=== PATIENT | male | born 1990 ===

== ENCOUNTER 2018-08-22 03:12 | Emergency (ER) | payer SELFPAY ==
[2018-08-22 03:16] VITALS: RESP 16
[2018-08-22 04:23] LABS: BASO % 0.3 % (0.0-2.0); EOS # 0.1 K/uL (0.0-0.7); EOS % 1.9 % (0.0-4.0); HEMOGLOBIN 15.7 g/dL (12.0-18.0); LYMPH % 25.6 % (20.0-40.0); MEAN CELL VOLUME 88.7 fL (80.0-94.0); MEAN CORPUSCULAR HEMOGLOBIN 30.3 pg (27.0-31.0); MEAN CORPUSCULAR HGB CONC 34.2 g/dL (33.0-37.0); MEAN PLATELET VOLUME 7.6 fL (7.2-11.7); MONO # 0.7 K/uL (0.0-0.8); MONO % 8.7 % (0.0-10.0); NEUT # 4.9 K/uL (1.8-7.0); NEUT % 63.5 % (50.0-75.0); RBC 5.18 Mil/uL (4.40-5.90); RED CELL DISTRIBUTION WIDTH 13.9 % (11.5-14.5); WHITE BLOOD COUNT 7.8 K/uL (4.8-10.8)
[2018-08-22 04:26] LABS: SQUAMOUS EPITHIAL < 1 /hpf (0-5); URINE BILIRUBIN NEGATIVE (NEGATIVE); URINE BLOOD NEGATIVE (NEGATIVE); URINE CLARITY Clear (Clear); URINE COLOR Yellow (YELLOW); URINE GLUCOSE (UA) NORMAL (Normal); URINE LEUKOCYTE ESTERASE NEG Leu/uL (Negative); URINE PROTEIN NEGATIVE (NEGATIVE)
[2018-08-22 04:35] LABS: ALB/GLOB RATIO 1.6 (1.0-2.1); ALBUMIN 4.4 g/dL (3.5-5.0); ALT/SGPT 74 U/L (21-72); AST/SGOT 52 U/L (17-59); BLOOD UREA NITROGEN 12 mg/dL (9-20); CALCIUM 9.1 mg/dl (8.6-10.4); GFR NON-AFRICAN AMERICAN > 60; LIPASE 831 U/L (23-300)
[2018-08-22] MEDS ORDERED: Iodixanol 320 MG/ML 100 ML BOTTLE IV ONE (04:52)
--- NOTE | 2018-08-22 05:48 | C.PDOC ---
History Of Present Illness 27 year old male presents to ED with complaint of pain to the epigastric area for the past 4 days. Patient also complains of associated intermittent nausea. He denies diarrhea, bloody stools, fever, or recent travel. Time Seen by Provider: 08/22/18 03:33 Chief Complaint (Nursing): Abdominal Pain History Per: Patient History/Exam Limitations: no limitations Onset/Duration Of Symptoms: Days (4) Current Symptoms Are (Timing): Still Present Location Of Pain/Discomfort: Epigastric Radiation Of Pain To:: None Quality Of Discomfort: "Pain" Associated Symptoms: Nausea. denies: Fever, Vomiting, Diarrhea, Urinary Symptoms Exacerbating Factors: None Alleviating Factors: None Past Medical History Reviewed: Historical Data, Nursing Documentation, Vital Signs Vital Signs: Last Vital Signs Temp 98.3 F 08/22/18 05:34 Pulse 57 L 08/22/18 05:34 Resp 16 08/22/18 05:34 BP 116/70 08/22/18 05:34 Pulse Ox 96 08/22/18 05:34 Primary Care Provider: FAMILY PROVIDER,NO - Medical History PMH: HTN (but no med) Surgical History: No Surg Hx Family History: States: Unknown Family Hx - Social History Hx Alcohol Use: Yes Hx Substance Use: No - Immunization History Hx Tetanus Toxoid Vaccination: No Hx Influenza Vaccination: No Hx Pneumococcal Vaccination: No Review Of Systems Constitutional: Negative for: Fever, Chills, Weakness Gastrointestinal: Positive for: Nausea, Abdominal Pain (epigastric). Negative for: Vomiting, Diarrhea, Hematochezia Physical Exam - Physical Exam Appears: Non-toxic, No Acute Distress Skin: Normal Color, Warm, Dry Head: Atraumatic, Normacephalic Neck: Normal ROM, Supple Chest: Symmetrical, No Deformity Cardiovascular: Rhythm Regular, No Murmur Respiratory: No Accessory Muscle Use, No Rales, No Rhonchi, No Wheezing Gastrointestinal/Abdominal: Tenderness (epigastric area tenderness, no tenderness to the right upper and left upper quadrants), No Distention, No Guarding, No Rebound, No Other (McBurney's point tenderness) Back: No CVA Tenderness Extremity: Capillary Refill (<2 seconds) Extremity: Bilateral: Atraumatic, Normal Color And Temperature, Normal ROM Pulses: Left Radial: Normal, Right Radial: Normal Neurological/Psych: Oriented x3, Normal Speech, Normal Cognition ED Course And Treatment - Laboratory Results Result Diagrams: 08/22/18 04:17 08/22/18 04:17 Lab Results: Total Bilirubin 0.4 mg/dL (0.2-1.3) 08/22/18 04:17 AST 52 U/L (17-59) 08/22/18 04:17 ALT 74 U/L (21-72) H 08/22/18 04:17 Alkaline Phosphatase 63 U/L (38-126) 08/22/18 04:17 Total Protein 7.2 g/dL (6.3-8.3) 08/22/18 04:17 Albumin 4.4 g/dL (3.5-5.0) 08/22/18 04:17 Globulin 2.8 gm/dL (2.2-3.9) 08/22/18 04:17 Albumin/Globulin Ratio 1.6 (1.0-2.1) 08/22/18 04:17 Lipase 831 U/L (23-300) H 08/22/18 04:17 Urine Color Yellow (YELLOW) 08/22/18 04:17 Urine Clarity Clear (Clear) 08/22/18 04:17 Urine pH 6.0 (5.0-8.0) 08/22/18 04:17 Ur Specific Topmost 1.018 (1.003-1.030) 08/22/18 04:17 Urine Protein Negative mg/dL (NEGATIVE) 08/22/18 04:17 Urine Glucose (UA) Normal mg/dL (Normal) 08/22/18 04:17 Urine Ketones Negative mg/dL (NEGATIVE) 08/22/18 04:17 Urine Blood Negative (NEGATIVE) 08/22/18 04:17 Urine Nitrate Negative (NEGATIVE) 08/22/18 04:17 Urine Bilirubin Negative (NEGATIVE) 08/22/18 04:17 Urine Urobilinogen 4.0 mg/dL (0.2-1.0) 08/22/18 04:17 Ur Leukocyte Esterase Neg Kathleen/uL (Negative) 08/22/18 04:17 Urine WBC (Auto) < 1 /hpf (0-5) 08/22/18 04:17 Ur Squamous Epith Cells < 1 /hpf (0-5) 08/22/18 04:17 O2 Sat by Pulse Oximetry: 96 (in RA) Pulse Ox Interpretation: Normal - CT Scan/US CT Abdomen/Pelvis Other Rad Studies (CT/US): Read By Radiologist CT/US Interpretation: IMPRESSION: 1. Fatty liver. 2. Suggestion of minimal fat stranding adjacent to pancreatic body, please exclude pancreatitis clinically. . Electronically signed on August 22, 2018 5:39:31 AM EDT by: Apollo Anthony M.D., M.B.A., Certified By [facility]. Fellowship Trained MRI and CT Specialist Progress Note: CMP, CBC, Lipase, and UA ordered for patient. Patient given Pepcid IVP, toradol IVP, and zofran IVP. Labs revealed elevated lipase. Abdomen/Pelvis CT ordered. Patient reports feeling better. Vitals remain unchanged and within normal limits. Patient discharged home with prescriptions and follow up. Disposition Counseled Patient/Family Regarding: Diagnosis, Need For Followup, Rx Given - Disposition Referrals: [facility] [Outside] Disposition: HOME/ ROUTINE Disposition Time: 06:05 Condition: STABLE Additional Instructions: Avoid greasy, heavy meals INCREASE FLUIDS Follow up in clinic take pain meds and antacid Return to ER if worse Prescriptions: Famotidine [Pepcid] 20 mg PO DAILY #14 tab traMADol [Ultram] 50 mg PO TID #14 tab Instructions: Pancreatitis Forms: [facility] (Malay) - Clinical Impression Clinical Impression: Pancreatitis, Gastritis - PA / MEAT TEAM LEAD / Resident Statement MD/DO has reviewed & agrees with the documentation as recorded. (Kirti Al) - Scribe Statement The provider has reviewed the documentation as recorded by the Scribe (Kirti Al) All medical record entries made by the Scribe were at my direction and personally dictated by me. I have reviewed the chart and agree that the record accurately reflects my personal performance of the history, physical exam, medical decision making, and the department course for this patient. I have also personally directed, reviewed, and agree with the discharge instructions and disposition.
[2018-08-22 06:59] VITALS: BP 147/89; PULSE 63; TEMP 98; O2SAT 97
--- NOTE | 2018-08-22 16:11 | CT ---
Date of service: 08/22/2018 PROCEDURE: CT Abdomen and Pelvis with contrast HISTORY: abd pain , epigastric , increase lipase COMPARISON: None. TECHNIQUE: Contrast dose: 100 mL of Visipaque 320 intravenously. Axial and reformatted coronal and sagittal CT images of the abdomen and pelvis were obtained after IV contrast administration. Radiation dose: Total exam DLP = 783.03 mGy-cm. This CT exam was performed using one or more of the following dose reduction techniques: Automated exposure control, adjustment of the mA and/or kV according to patient size, and/or use of iterative reconstruction technique. FINDINGS: LOWER THORAX: No evidence of acute pathology. LIVER: [id number] hepatomegaly and mild hepatic steatosis are noted. GALLBLADDER AND BILE DUCTS: Unremarkable. PANCREAS: There are mild inflammatory changes adjacent to the pancreas. Findings suspicious for pancreatitis. The main pancreatic duct is not dilated. SPLEEN: Unremarkable. ADRENALS: Unremarkable. No mass. KIDNEYS AND URETERS: Unremarkable. No hydronephrosis. No solid mass. VASCULATURE: Unremarkable. No aortic aneurysm. No aortic atherosclerotic calcification or mural plaque present. BOWEL: Unremarkable. No obstruction. No gross mural thickening. APPENDIX: Normal appendix. PERITONEUM: Unremarkable. No free fluid. No free air. LYMPH NODES: Unremarkable. No enlarged lymph nodes. BLADDER: Unremarkable. REPRODUCTIVE: Unremarkable. BONES: No acute fracture. OTHER FINDINGS: None. IMPRESSION: Findings suggestive of mild pancreatitis. Clinical correlation is suggested. Hepatomegaly and hepatic steatosis. Preliminary report was submitted by [facility] Radiology contains concordant findings.
== END 2018-08-22 07:00 | disposition home or self-care (01) ==
LOC: C.ER 03:12
DX: K29.70 Gastritis, unspecified, without bleeding (principal); K85.90 Acute pancreatitis without necrosis or infection, unspecified; I10 Essential (primary) hypertension
CPT/HCPCS: 74177; 80053; 81001; 83690; 85025; 96374; 96375; 99284; J1885; J2405; Q9967